=== PATIENT | male | born 1965 | race Caucasian/White ===

== ENCOUNTER 2016-11-29 17:10 | Inpatient (IN) | payer OTHER ==
[~2016-11-29] VITALS: Ht 180.3 cm; Wt 146.6 kg
[~2016-11-29 17:10] MED LIST: VOLTAREN75 MG PO
[2016-11-29 18:10] LABS: HEMATOCRIT 45.8 % (38.0-50.0); MCH 27.8 PG (29.0-34.0); MCHC 31.9 G/DL (30.0-36.0); MCV 87.1 FL (86-99); MEAN PLAT.VOLUME 12.5 uM^3 (9.0-12.4); PLATELET COUNT 145 K/uL (156-360); RBC DIS.WIDTH-CV 14.6 % (11.8-14.6); RBC DIS.WIDTH-SD 46.8 % (39-53); RED BLOOD COUNT 5.26 M/uL (4.00-5.50); WHITE BLOOD COUNT 7.4 K/uL (4.1-10.2)
[2016-11-29 18:21] LABS: CHLORIDE 112 mEq/L (99-109); POTASSIUM 4.1 mEq/L (3.7-5.4); SODIUM 141 mEq/L (136-147)
[2016-11-29 18:23] LABS: GLUCOSE 108 mg/dL (70-99)
[2016-11-29 18:24] LABS: ANION GAP 9 MEQ/L (2-14)
[2016-11-29 18:27] LABS: GFR ESTIMATE (CALCULATED) > 59 mL/min/
[2016-11-29 18:28] LABS: UREA NITROGEN (BUN) 12 mg/dL (9-23)
[2016-11-29 18:31] LABS: TROP-I INTERPRETATION NEGATIVE; TROPONIN-I < 0.01 ng/mL (0.0-0.30)
[2016-11-29 20:30] LABS: ADD MIUA? YES; BILIRUBIN NEGATIVE; BLOOD NEGATIVE; COLOR YELLOW ((YELLOW)); GLUCOSE (STRIP) NEGATIVE; KETONES NEGATIVE; LEUKOCYTES NEGATIVE; NITRITE NEGATIVE; PROTEIN (STRIP) NEGATIVE; SPECIFIC GRAVITY 1.024 (1.000-1.030)
[2016-11-29] MEDS ORDERED: OXYCODONE HCL15 MG PO (20:34)
[2016-11-29] MEDS ORDERED: TOPIRAMATE100 MG PO (20:34)
[2016-11-29] MEDS ORDERED: LYRICA75 MG PO (20:35)
[2016-11-29] MEDS ORDERED: DESYREL100 MG PO (20:35)
[2016-11-29] MEDS ORDERED: CARBIDOPA-LEVO1 EAC5 PO (20:35)
[2016-11-29] MEDS ORDERED: VENTOLIN HFA18 GM IH (20:36)
[2016-11-29] MEDS ORDERED: BUTALB-APAP-CA1 EACH PO (20:36)
[2016-11-29] MEDS ORDERED: SERTRALINE HCL100 MG PO (20:37)
[2016-11-29] MEDS ORDERED: MELOXICAM15 MG PO (20:37)
[2016-11-29] MEDS ORDERED: AMLODIPINE BESYL5 MG PO (20:37)
[2016-11-29] MEDS ORDERED: CYANOCOBAL1000 MCG/2 IM (20:38)
[2016-11-29 20:39] LABS: BACTERIA RARE /HPF; EPITHELIAL CELLS RARE /HPF; MUCUS 1+ /LPF; RED BLOOD CELLS 0-5 /HPF (0-5); UCUL ADDED? NO; WHITE BLOOD CELLS 0-5 /HPF (0-5)
[2016-11-29 21:52] VITALS: BP 150/83
[2016-11-29 21:55] LABS: HDL CHOLESTEROL 38 MG/DL (Desirable>=40); LDL CHOLESTEROL 129 mg/dL (Desirable<100); NON-HDL CHOLESTEROL 153 mg/dL (Desirable<160); TOTAL CHOLESTEROL 191 mg/dL (Desirable<200); TRIGLYCERIDES 121 MG/DL (Normal: <150)
[2016-11-30 03:54] VITALS: BP 103/66
[2016-11-30 06:31] LABS: HEMATOCRIT 42.1 % (38.0-50.0); MCH 27.7 PG (29.0-34.0); MCHC 31.6 G/DL (30.0-36.0); MCV 87.7 FL (86-99); MEAN PLAT.VOLUME 13.1 uM^3 (9.0-12.4); PLATELET COUNT 161 K/uL (156-360); RBC DIS.WIDTH-CV 14.5 % (11.8-14.6); RBC DIS.WIDTH-SD 46.8 % (39-53); WHITE BLOOD COUNT 7.7 K/uL (4.1-10.2)
[2016-11-30 07:27] VITALS: BP 123/68
[2016-11-30 08:04] LABS: Estimated Average Glucose 117 mg/dL (70-123); HEMOGLOBIN A1c (GLYCOHEMOGLOB) 5.7 % HGB (Below 5.7)
[2016-11-30 11:18] VITALS: BP 136/72
[2016-11-30 15:17] VITALS: BP 129/69
[2016-11-30 19:26] VITALS: BP 125/67
[2016-11-30 23:59] VITALS: BP 112/57
[2016-12-01 03:39] VITALS: BP 120/62
[2016-12-01 07:43] VITALS: BP 122/67
[2016-12-01] MEDS ORDERED: ASPIRIN EC325 MG PO (11:22)
[2016-12-01] MEDS ORDERED: ANTIVERT12.5 MG PO (11:22)
[2016-12-01] MEDS ORDERED: PRAVASTATIN SOD80 MG PO (11:22)
[2016-12-01 11:42] VITALS: BP 121/71
== END 2016-12-01 13:15 | disposition home health service (06) | DRG 149 ==
LOC: EME 17:10 → 5SOUTH 19:53 → EDOF 19:53 → ENRESERV 19:55 → 5SOUTH 21:40
PROVIDERS: Emergency Medicine; Hospitalist
DX: R42 Dizziness and giddiness (principal); I10 Essential (primary) hypertension; F40.240 Claustrophobia; Z68.42 Body mass index [BMI] 45.0-49.9, adult; G62.9 Polyneuropathy, unspecified; Z53.20 Procedure and treatment not carried out because of patient's decision for unspecified reasons; M17.12 Unilateral primary osteoarthritis, left knee; G89.29 Other chronic pain; E78.00 Pure hypercholesterolemia, unspecified; J45.909 Unspecified asthma, uncomplicated; Z72.0 Tobacco use; Z79.899 Other long term (current) drug therapy; Z96.659 Presence of unspecified artificial knee joint
CPT/HCPCS: 70450; 70496; 70498; 71010; 80048; 80061; 81003; 82607; 82746; 83036; 84443; 84484; 85027; 93005; 93306; 95819; 99202; 99281; 99285; J1644

== ENCOUNTER 2017-04-30 19:41 | Emergency (ER) | payer OTHER ==
[~2017-04-30] VITALS: Ht 180.3 cm; Wt 152.1 kg
[~2017-04-30 19:41] MED LIST changes: +AMLODIPINE BESYL5 MG PO; +ANTIVERT12.5 MG PO; +ASPIRIN EC325 MG PO; +BUTALB-APAP-CA1 EACH PO; +CARBIDOPA-LEVO1 EAC5 PO; +CYANOCOBAL1000 MCG/2 IM; +DESYREL100 MG PO; +LYRICA75 MG PO; +MELOXICAM15 MG PO; +OXYCODONE HCL15 MG PO; +PRAVASTATIN SOD80 MG PO; +SERTRALINE HCL100 MG PO; +TOPIRAMATE100 MG PO; +VENTOLIN HFA18 GM IH
[2017-04-30] MEDS ORDERED: OXYCONTIN15 MG PO (21:32)
[2017-04-30 22:44] VITALS: BP 119/70
== END 2017-04-30 22:45 | disposition home or self-care (01) ==
LOC: EME → EDBD 19:41 → EME 19:41
DX: M17.12 Unilateral primary osteoarthritis, left knee (principal); G89.29 Other chronic pain; I10 Essential (primary) hypertension; Z87.891 Personal history of nicotine dependence
CPT/HCPCS: 73564; 99281; 99284; J1885; J2270

== ENCOUNTER 2017-08-22 20:32 | Inpatient (IN) | payer OTHER ==
[~2017-08-22] VITALS: Ht 182.9 cm; Wt 149.3 kg
[~2017-08-22 20:32] MED LIST changes: +MOBIC15 MG PO; +NORVASC5 MG PO; +OXYCONTIN15 MG PO; +SIMVASTATIN40 MG PO; +TOPAMAX100 MG PO; +ZOLOFT100 MG PO
[2017-08-23 06:03] VITALS: BP 122/66
[2017-08-23 11:14] VITALS: BP 115/73
[2017-08-23 16:27] VITALS: BP 112/65
[2017-08-23 20:12] VITALS: BP 113/61
[2017-08-24 00:02] VITALS: BP 117/58
[2017-08-24 04:22] VITALS: BP 99/60
[2017-08-24 06:48] LABS: CHLORIDE 107 MEQ/L (99-109); CREATININE 0.9 MG/DL (0.6-1.3); GFR ESTIMATE (CALCULATED) > 59 mL/min/ (58.99-99999); POTASSIUM 4.5 MEQ/L (3.7-5.4); SODIUM 139 MEQ/L (136-147); UREA NITROGEN (BUN) 10 mg/dL (9-23)
[2017-08-24 06:51] LABS: GLUCOSE 163 mg/dL (70-99)
[2017-08-24 07:50] VITALS: BP 130/70
[2017-08-24] MEDS ORDERED: ELIQUIS2.5 MG PO (10:25)
[2017-08-24 12:26] VITALS: BP 121/59
[2017-08-24 15:57] VITALS: BP 112/54
[2017-08-24 20:22] VITALS: BP 133/66
[2017-08-25 00:01] VITALS: BP 112/58
[2017-08-25 04:08] VITALS: BP 124/59
[2017-08-25 08:00] VITALS: BP 134/76
== END 2017-08-25 15:00 | disposition home or self-care (01) | DRG 467 ==
LOC: ENRESERV 20:32 → 3WEST 08-23 05:35 → 2SOUTH 08-23 05:35 → 3WEST 08-23 10:54 → 2SOUTH 08-23 13:54 → 3WEST 08-25 15:00
PROVIDERS: Orthopaedic Surgery
DX: T84.093A Other mechanical complication of internal left knee prosthesis, initial encounter (principal); E66.01 Morbid (severe) obesity due to excess calories; G47.30 Sleep apnea, unspecified; I10 Essential (primary) hypertension; Z68.41 Body mass index [BMI] 40.0-44.9, adult; Z96.652 Presence of left artificial knee joint; M12.562 Traumatic arthropathy, left knee; T14.90XS Injury, unspecified, sequela; X58.XXXS Exposure to other specified factors, sequela
CPT/HCPCS: 36415; 80048; 82948; 83036; C1713; J0131; J0690; J1100; J1170; J1885; J2250; J2405; J2795; J3010; J7050; J7120; L1820; S0020

== ENCOUNTER 2017-09-07 14:16 | Emergency (ER) | payer OTHER ==
[~2017-09-07] VITALS: Ht 182.9 cm; Wt 148.7 kg
[~2017-09-07 14:16] MED LIST changes: +ELIQUIS2.5 MG PO
[2017-09-07 14:43] LABS: HEMATOCRIT 35.2 % (38.0-50.0); MCH 28.6 PG (29.0-34.0); MCHC 32.7 G/DL (30.0-36.0); MCV 87.6 FL (86-99); RBC DIS.WIDTH-CV 13.6 % (11.8-14.6); RBC DIS.WIDTH-SD 44.1 % (39-53); RED BLOOD COUNT 4.02 M/uL (4.00-5.50); WHITE BLOOD COUNT 9.4 K/uL (4.1-10.2)
[2017-09-07 14:48] LABS: HEMOGLOBIN 11.5 G/DL (12.5-16.6); PLATELET COUNT 307 K/uL (156-360)
[2017-09-07 14:59] LABS: CHLORIDE 107 mEq/L (99-109); POTASSIUM 3.9 mEq/L (3.7-5.4); SODIUM 139 mEq/L (136-147)
[2017-09-07 15:00] LABS: GLUCOSE 101 mg/dL (70-99)
[2017-09-07 15:04] LABS: CREATININE 0.9 mg/dL (0.6-1.3); GFR ESTIMATE (CALCULATED) > 59 mL/min/ (58.99-99999)
[2017-09-07 15:05] LABS: UREA NITROGEN (BUN) 14 mg/dL (9-23)
[2017-09-07] MEDS ORDERED: PERCOCET 5/31 TABLET PO (17:09)
[2017-09-07] MEDS ORDERED: BACTRIM,SEPT1 TABLET PO (17:09)
[2017-09-07 17:52] VITALS: BP 121/49
== END 2017-09-07 17:53 | disposition home or self-care (01) ==
LOC: EME 14:16
PROVIDERS: Nurse Practitioner Family
PROC: 0S9C3ZZ Drainage of Right Knee Joint, Percutaneous Approach (ICD-10-PCS; principal; 2017-09-07)
DX: M25.461 Effusion, right knee (principal); R50.9 Fever, unspecified; E78.5 Hyperlipidemia, unspecified; Z87.891 Personal history of nicotine dependence; Z96.652 Presence of left artificial knee joint
CPT/HCPCS: 73564; 80048; 85027; 87070; 87205; 99281; 99284